=== PATIENT | female | born 1995 | race Caucasian/White ===

== ENCOUNTER 2019-03-25 23:44 | Emergency (ER) | payer BC, MEDICAID, SELFPAY ==
[2019-03-25 23:46] VITALS: BP 115/72; PULSE 119; RESP 17; TEMP 37.5; O2SAT 100; BMI 31.1
--- NOTE | 2019-03-25 23:56 | EKG12_ITS ---
Test Reason : Blood Pressure : / mmHG Vent. Rate : 112 BPM Atrial Rate : 112 BPM P-R Int : 166 ms QRS Dur : 074 ms QT Int : 330 ms P-R-T Axes : 015 053 019 degrees QTc Int : 450 ms Sinus tachycardia Otherwise normal ECG Confirmed by VIRGILIO AQUINO, LALO ([id number]), publications editor KELLEN KIRK ([id number]) on 03/27/2019 10:43:46 AM Referred By: ALEK Confirmed By:RASHMI POOLE MD
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
[2019-03-26] MEDS: Ibuprofen 200 MG Tablet 400 MG PO (00:16)
[2019-03-26] MEDS: 0.9% Normal Saline 1,000 ML 999 ML IV ×2 (00:16→01:05)
[2019-03-26] MEDS: Ondansetron 4 MG/2 ML Vial IV (00:16)
[2019-03-26 00:23] LABS: Carboxyhemoglobin Frac (CO) 0.4 % (0.0-1.5)
[2019-03-26 00:55] VITALS: PULSE 110; TEMP 37.9
--- NOTE | 2019-03-26 00:55 | RAD_ITS ---
STUDY: X-RAY CHEST REASON FOR EXAM: Female, 23 years old. Fever TECHNIQUE: Frontal and lateral views of the chest. COMPARISON: None. FINDINGS: The lungs are clear and expanded. There is no demonstrated pleural abnormality. Normal size heart. Normal mediastinum and [place]. Normal visualized pulmonary arteries. Normal visualized aortic arch and descending thoracic aorta. Scoliotic curvature to the spine. Normal visualized ribs, clavicles, and shoulders. There is no demonstrated abnormality of the visualized soft tissue structures of the upper abdomen. RAD/Chest PA and Lateral IMPRESSION: No focal consolidation. Mild scoliotic curvature to the spine. Electronically Signed: Jono Lemus, at 1:55 EDT Tel , Service support ,
[2019-03-26 01:02] LABS: Absolute Lymphocyte Count 1.17 X10^3/ul (0.83-4.51); Absolute Neutrophil Count 10.7 X10^3/uL (2.0-7.7); Basophil# 0.03 X10^3/uL; Basophil% 0.2 % (0-1); Eosinophil# 0.09 X10^3/uL; Eosinophils% 0.7 % (0-5); Hematocrit 39.8 % (37-47); Hemoglobin 13.7 g/dl (12.0-15.0); Lymphocyte # 1.17 X10^3/ul (4.0); Lymphocyte % 8.9 % (19-41); Mean Corp Hgb Conc 34.4 g/gl (32-36); Mean Corpuscular Hgb 29.1 pg (27.0-32.0); Mean Corpuscular Volume 84.7 fL (81-99); Mean Platelet Vol. 9.8 fl (6.2-12.0); Monocyte# 1.22 X10^3/uL; Monocyte% 9.2 % (0-10); Neutrophil # 10.66 X10^3/uL (2.7-7.7); Neutrophil % 80.8 % (47-70); POSITIVE COUNT NO; POSITIVE DIFFERENTIAL NO; POSITIVE MORPHOLOGY NO; Platelet Count 284 K/mm3 (150-450); RBC Distribution Width CV 13.1 % (11.6-14.6); RBC Distribution Width SD 40.4 fl (35.1-43.9); White Blood Count 13.2 K/mm3 (4.4-11.0)
[2019-03-26 01:10] LABS: Mucous, Urine 0 SEEN /hpf (<or=2+)
[2019-03-26 01:16] LABS: Anion Gap 5 (5-15); BUN 16 mg/dL (7-18); BUN/Creat Ratio 18.5 RATIO (10-20); Calcium,Total 9.1 mg/dL (8.5-10.1); Chloride 104 mmol/L (98-107); Creatinine, Serum 0.87 mg/dL (0.55-1.02); EST Glomerular Filtration Rate 85 mL/min (>60); Est Glom Filt Rate - Afr Amer 103 mL/min (>60); Estimated Creatinine Clearance 78.86 ml/min; Glucose 79 mg/dL (74-106); Potassium 3.7 mmol/L (3.5-5.1); Sodium Level 137 mmol/L (136-145)
[2019-03-26 01:19] LABS: Color, Urine Yellow (Yellow); Glucose, Dipstick Normal (Normal); Ketone-Dipstick Negative (Negative); Leukocyte Esterase-Dipstick 25 /ul (Negative); Nitrite-Dipstick Negative (Negative); Occult Blood-Urine 250 /ul (Negative); Protein-Dipstick 30 mg/dl (Negative); Urine Bilirubin Dipstick Negative (Negative); Urine Clarity Cloudy (Clear); Urine Urobilinogen Normal (Normal)
[2019-03-26 01:22] VITALS: BP 140/77; PULSE 120; RESP 15; TEMP 37.2; O2SAT 100
[2019-03-26 01:22] LABS: Bacteria RARE /hpf (None Seen); Red Blood Cells-Urine 10-25 SEEN /hpf (0-5); Squamous Epithelial Cells - UA 0-5 SEEN /hpf (5-10); White Blood Cells 0-5 SEEN /hpf (0-5)
[2019-03-26 02:31] VITALS: BP 123/75; PULSE 108; RESP 14; TEMP 37.4; O2SAT 99
--- NOTE | 2019-03-26 02:35 | DCINST.ED_ITS ---
ED Disposition - Plan for ED Patient: Instructions: Heat Exhaustion Referrals: Winsome Valdovinos, POULTRY FEED SUPERVISOR-C [Primary Care Provider] -
--- NOTE | 2019-03-26 02:35 | ED.DEP ---
ED Disposition - Plan for ED Patient: Instructions: Heat Exhaustion Referrals: Winsome Valdovinos, TISSUE INSERTER-C [Primary Care Provider] -
== END 2019-03-26 02:49 | disposition home or self-care (01) ==
LOC: ED 03-26 00:03
PROVIDERS: Emergency Provider Emergency Medicine; Family Provider Nurse Practitioner Family; PCP Nurse Practitioner Family
DX: T67.5XXA Heat exhaustion, unspecified, initial encounter (principal); R25.1 Tremor, unspecified; F31.9 Bipolar disorder, unspecified
CPT/HCPCS: 71046; 80048; 81001; 82375; 85025; 93005; 96361; 96374; 96375; 99285; J7030; A4216; J2405

== ENCOUNTER 2020-07-15 14:56 | Emergency (ER) | payer OTHER, BC, SELFPAY ==
[2020-07-15 14:56] VITALS: BP 124/74; PULSE 79; RESP 16; TEMP 36.2; O2SAT 99; BMI 24.8
--- NOTE | 2020-07-15 15:32 | RAD_ITS ---
STUDY: X-RAY - RIGHT SHOULDER REASON FOR EXAM: Female, 25 years old. PT FELT SHOULDER and quot;POP OUT THEN BACK IN and quot; AFTER RUNNING INTO SOMETHING TECHNIQUE: 3 view(s) of the shoulder. COMPARISON: None. FINDINGS: Normal glenohumeral articulation. Normal acromioclavicular joint. Normal acromion. Normal humeral head and visualized proximal humerus. The soft tissue structures are unremarkable. Normal visualized pulmonary apex. RAD/Shoulder min 2 Views IMPRESSION: Normal x-ray examination of the shoulder. Electronically Signed: Richard Richmond, at 15:56 EDT , Service support ,
--- NOTE | 2020-07-15 16:14 | ED.DCSUM_ITS ---
History of Present Illness Informant: Patient Onset: Yesterday Narrative: 25-year-old right hand dominant female presents with right shoulder injury. She states yesterday she was at work and moving a large rolling crate weighing approximately 100 pounds. Her right arm was extended when she hit a guard rail causing her right shoulder to move backwards. She states she felt a pop in this area and now has pain with moving the shoulder. Denies weakness, numbness, or tingling. <Phylicia Morris - Last Filed: 07/15/20 16:26> <Sammy Rodas - Last Filed: 07/15/20 16:35> Chief Complaint: Upper Extremity Injury Past Medical History Past Medical History: None Smoking Status: Never smoker <Phylicia Morris - Last Filed: 07/15/20 16:26> <Sammy Rodas - Last Filed: 07/15/20 16:35> - Allergies and Home Meds Allergies/Adverse Reactions: Allergies No Known Allergies Allergy (Verified 07/15/20 14:59) Primary Care Physician: Winsome Valdovinos CLINICAL SYSTEMS ANALYST, CLINICAL SYSTEMS ANALYST-C [Primary Care Provider] - Review of Systems General: Denies: Chills, Fever, Sweats Eyes: Denies: Visual changes - bilaterally, Diplopia ENT: Denies: Rhinorrhea, Sore throat Cardiovascular: Denies: Chest pain, Palpitations Respiratory: Denies: Dyspnea, Cough, Dyspnea on exertion Gastrointestinal: Denies: Abdominal pain, Nausea, Vomiting, Diarrhea, Melena, Hematochezia Genitourinary: Denies: Dysuria, Hematuria, Frequency Musculoskeletal: Reports: Extremity Pain. Denies: Back pain Skin: Denies: Rash, Wounds Neurological: Reports: Headache. Denies: Weakness, Parasthesia, Numbness <Phylicia Morris - Last Filed: 07/15/20 16:26> Physical Exam Vital Signs/Narrative: Vital Signs Temp Pulse Resp BP Pulse Ox 07/15/20 14:56 97.1 F L 79 16 124/74 H 99 General: Well nourished, Well developed, No Acute Distress Head: Normocephalic, Atraumatic Eyes: Perrl, EOMI ENT: Moist mucous membranes, No rhinorrhea Neck: Supple, Nontender Cardiovascular: Regular rate, Regular rhythm, No murmurs Respiratory: No distress, CTA bilaterally, Chest nontender Back: Nontender, Normal Inspection Extremities: No edema, - - Tender over proximal humerus and deltoid muscles. No deformity or crepitus. Patient hesitant to move her shoulder but would abduct to 90 degrees with strength intact. Sensation intact in median, ulnar, and radial distributions. Normal exam of the elbow and wrist. 2+ radial pulse. Skin: Normal color, No rash Neurological: Alert, Oriented x3, Cranial nerves II-XII grossly intact, Normal Strength, Normal Sensation Psychological: Normal affect, Normal Mood <Phylicia Morris - Last Filed: 07/15/20 16:26> Vital Signs/Narrative: Vital Signs Temp Pulse Resp BP Pulse Ox 07/15/20 14:56 97.1 F L 79 16 124/74 H 99 <Sammy Rodas - Last Filed: 07/15/20 16:35> Diagnostic/Tx/Re-eval Clinical Impression(s) from Imaging Studies Shoulder X-Ray 07/15/20 15:32 IMPRESSION: Normal x-ray examination of the shoulder. Electronically Signed: Richard Richmond, at 15:56 EDT , Service support , - Medical Decision Making Presented with right shoulder injury after her jarring her right shoulder when moving a cart yesterday. She appears well nontoxic. Vital signs within normal intact on exam but does have some tenderness over the proximal humerus and deltoid. She is reluctant to move the shoulder but did do so with coaxing. X- ray shows no acute pathology. She was advised that she has a shoulder strain and to ice and take anti-inflammatories. Follow-up with workers comp. She was agreeable and discharged home in stable condition. <Phylicia Morris - Last Filed: 07/15/20 16:26> - Medical Decision Making Independent history physical was obtained. Patient reports jamming her shoulder at work yesterday. She states that her shoulder popped in and out. She denies paresthesia, anesthesia milliliters time of the injury. She denied limited range of motion last evening. She presents because of pain. There is no pain the patient of the clavicle or AC joint. Is no pain the patient in the proximal humerus. The humerus appears to be in proper position. Axillary, median, radial and ulnar nerve function intact. X-ray was ordered and was interpreted by radiologist as negative. Reviewed by oh <Sammy Rodas - Last Filed: 07/15/20 16:35> ED Disposition <Phylicia Morris - Last Filed: 07/15/20 16:26> <Sammy Rodas - Last Filed: 07/15/20 16:35> - Plan for ED Patient: Disposition: Home or Assisted Living Diagnosis: Right shoulder strain Instructions: ED Shoulder Sprain Referrals: Winsome Valdovinos CLINICAL SYSTEMS ANALYST, CLINICAL SYSTEMS ANALYST-C [Primary Care Provider] -
--- NOTE | 2020-07-15 17:04 | ED.RN ---
DISCHARGE INSTRUCTIONS GIVEN TO AND REVIEWED WITH PATIENT, PATIENT DENIES QUESTIONS OR CONCERNS AND VOICES UNDERSTANDING OF DISCHARGE INSTRUCTIONS. PT AMBULATES OUT OF ROOM WITHOUT DIFFICULTY. PATIENT ESCORTED TO WAITING ROOM TO WAIT FOR CORPORATE CARE FOR TEST.
== END 2020-07-15 17:06 | disposition home or self-care (01) ==
PROVIDERS: Emergency Provider Physician Assistant; PCP Nurse Practitioner Family
DX: S46.911A Strain of unspecified muscle, fascia and tendon at shoulder and upper arm level, right arm, initial encounter (principal); X50.9XXA Other and unspecified overexertion or strenuous movements or postures, initial encounter
CPT/HCPCS: 73030; 99281; 99283

== ENCOUNTER 2021-02-23 18:48 | Emergency (ER) | payer OTHER, SELFPAY ==
[2021-02-23 18:48] VITALS: BP 142/101; PULSE 113; RESP 19; TEMP 36.4; O2SAT 99; BMI 23.8
--- NOTE | 2021-02-23 19:30 | RAD_ITS ---
STUDY: X-RAY - LEFT HAND, ATTENTION SECOND FINGER REASON FOR EXAM: Female, 25 years old. LAC TO LEFT INDEX FINGER FROM A PIECE OF SCRAP METAL AT WORK. PATIENT UNABLE TO TAKE RING OFF OF FINGER. TECHNIQUE: 3 view(s) of the finger were obtained. COMPARISON: None. FINDINGS: Laceration and subcutaneous gas seen around the soft tissues of the middle and distal phalanx of the second digit. Bandage material is also present limiting visualization. No demonstrated fracture. Normal metacarpal head. Normal metacarpophalangeal joint. Normal proximal phalanx. Normal middle phalanx. Normal distal phalanx. Normal proximal interphalangeal joint. Normal distal interphalangeal joint. RAD/Finger(s) Min 2 Views IMPRESSION: 1. Laceration and subcutaneous gas seen around the soft tissues of the middle and distal phalanx of the second digit. Bandage material is also present limiting visualization. No demonstrated fracture. Electronically Signed: Kyler Davis MD at 19:50 EDT , Service support ,
[2021-02-23] MEDS: Diphth,Pertuss(Acell),Tet Vac 0.5 ML Vial IM (19:38)
[2021-02-23] MEDS: Lidocaine 1% (20 ml mdv) 20 ML Vial INFILT (21:34)
[2021-02-23] MEDS: BACITRACIN 15 GM Tube 1 APPLIC TOPICAL (21:34)
--- NOTE | 2021-02-23 22:35 | EDS_ITS ---
HPI History of Present Illness Chief Complaint: Laceration Informant: patient Onset/Context/Timing Onset: Today Mechanism/Context: Work Related Location: Left index finger Current Severity: Moderate Associated Symptoms Associated Symptoms: Negative for Parasthesias, Weakness and Loss of function Narrative Narrative: Patient cut her left index finger on a piece of metal at work Tetanus Immunization: Unknown Prior similar symptoms: No Recent Illness/Hospitalization: No PFSH PFSH Medical History Anxiety Asthma Depression Shoulder pain Home Medications fluoxetine 20 mg PO DAILY 07/15/20 [History Last Taken Unknown] lamotrigine 25 mg PO QHS 07/15/20 [History Last Taken Unknown] cephalexin 500 mg PO Q6 #20 capsule 02/23/21 [Rx Last Taken Unknown] Allergy/AdvReac Type Severity Reaction Status Date / Time No Known Allergies Allergy Verified 07/20/20 10:02 Family History Father Hypertension Hypercholesterolemia Mother MVP (mitral valve prolapse) Social History Smoking Status: Never smoker alcohol intake: never ROS ROS ED Constitutional Constitutional ED: Reports systems reviewed and no addt'l complaints, except as documented Eyes Eyes: Reports systems reviewed and no addt'l complaints, except as documented ENT ENT ED: Reports systems reviewed and no addt'l complaints, except as documented Cardiovascular Cardiovascular: Reports systems reviewed and no addt'l complaints, except as documented Respiratory/Chest Respiratory/Chest: Reports systems reviewed and no addt'l complaints, except as documented Gastrointestinal Gastrointestinal: Reports systems reviewed and no addt'l complaints, except as documented Genitourinary Genitourinary ED: Reports systems reviewed and no addt'l complaints, except as documented Musculoskeletal Musculoskeletal: Reports systems reviewed and no addt'l complaints, except as documented Integumentary Reports laceration Neurologic Neurologic: Reports systems reviewed and no addt'l complaints, except as documented Psychiatric Psychiatric: Reports systems reviewed and no addt'l complaints, except as docu mented Hematologic/Lymphatic Hematologic/Lymphatic: Reports systems reviewed and no addt'l complaints, except as documented EXAM Physical Exam Const Vital Signs: 02/23/21 18:48 02/23/21 23:03 Temperature 97.6 F L Temperature Source Temporal Pulse Rate 113 H Respiratory Rate 19 H 18 Blood Pressure 142/101 H Blood Pressure Mean 114 Pulse Ox 99 Oxygen Delivery Method Room Air Positive well nourished and well developed General Appearance ED: well developed HEENT Reports normocephalic Eyes EOMs intact bilaterally Neck full ROM Resp normal respiratory effort Cardio Rate: tachycardic Extremity Extremity Narrative: Laceration, see below Neuro moves all extremities, no focal motor deficits and no sensory deficits noted Skin Skin Narrative: 2 cm laceration to her left index finger. Full-thickness. The deep structures do not appear to be involved. No tendons or bone exposed. MDM MDM MDM Narrative Medical decision making narrative: Tetanus updated. I checked an x-ray. No fracture or foreign body. Digital block was performed by me. Negative asp iration. She had mixed response to this block and I also injected some local lidocaine which seemed to help. Her ring was removed. Tourniquet was applied. Wound was explored under good lighting and hemostasis. No foreign bodies. No tendon or bony injury visualized. This was closed with 7 simple interrupted sutures. She had good wound approximation. She tolerated the procedure well. Risk factors such as infection were discussed. She was started on Keflex prophylaxis. Follow-up with Dr. Guna. Suture care instructions were given. Radiography X-Ray: Read by ED Physician and No Fracture Diagnostic Testing: Radiology Impression Finger X-Ray 02/23/21 19:30 IMPRESSION: 1. Laceration and subcutaneous gas seen around the soft tissues of the middle and distal phalanx of the second digit. Bandage material is also present limiting visualization. No demonstrated fracture. Electronically Signed: Kyler Davis MD at 19:50 EDT , Service support , Discharge Plan Triage Chief Complaint: Laceration ED Provider: Edin Sequeira Dx/Rx/DC Orders Clinical Impression: Laceration of left index finger Instructions: Suture Care Prescriptions: New cephalexin 500 mg capsule 500 mg PO Q6 Qty: 20 RF: 0 No Action fluoxetine 20 MG capsule 20 mg PO DAILY RF: 0 lamotrigine 25 MG tablets,dose pack 25 mg PO QHS RF: 0 Primary Care Provider: Winsome Valdovinos NP Referrals: Denilson Pena MD [NON-STAFF] - Disposition Disposition: Home, self care Discharge Date/Time: 02/23/21 23:04
[2021-02-23] MEDS: Cephalexin 250 MG Capsule 500 MG PO (22:45)
[2021-02-23 23:03] VITALS: RESP 18
== END 2021-02-23 23:04 | disposition home or self-care (01) ==
PROVIDERS: Emergency Provider Emergency Medicine; PCP Nurse Practitioner Family
DX: S61.211A Laceration without foreign body of left index finger without damage to nail, initial encounter (principal); W26.8XXA Contact with other sharp object(s), not elsewhere classified, initial encounter; Y93.89 Activity, other specified; Y92.89 Other specified places as the place of occurrence of the external cause; Y99.0 Civilian activity done for income or pay; Z23 Encounter for immunization
CPT/HCPCS: 12001; 73140; 90715; 99283